=== PATIENT | female | born 1940 | race Caucasian/White ===

== ENCOUNTER 2017-08-01 08:05 | Day surgery (SDC) | payer MEDICARE ==
[~2017-08-01 08:05] MED LIST: BUPIVACAINE HCL 0.75% INJ/PF (7.5 MG/1 ML) 10 ML SDV OD PRN; KETOROLAC TROMETHAMINE 0.45% 4 DROP/0.4 ML DROPERETTE OD PRN; LIDOCAINE 4% INJ/PF (40 MG/ML) 5 ML AMPUL OD PRN
[2017-08-01] MEDS ORDERED: EPINEPHRINE INJ/PF 1 MG/1 ML AMPULE ONE (08:22)
[2017-08-01] MEDS ORDERED: CHONDR SU A NA/HYALUR INTRAOC KIT (SURGICARE) ONE (08:23)
[2017-08-01] MEDS ORDERED: LIDOCAINE 1% INJ-PF (10 MG/ML) 30 ML SDV ONE (08:23)
[2017-08-01] MEDS: CYCLOPENTOLATE 0.2%/PHENYLEPHRINE 1% OPH SOLN 2 ML OD PRN ×3 (08:42→09:02)
[2017-08-01] MEDS: TROPICAMIDE 1% OPH SOLN 3 ML OD PRN ×3 (08:42→09:02)
[2017-08-01] MEDS: BESIFLOXACIN HCL 0.6% OPH SUSP 5 ML BOTTLE OD PRN ×4 (08:42→09:40)
[2017-08-01] MEDS: TETRACAINE HCL 0.5% OPH SOLN 0.6 ML DROPERETTE OD PRN ×2 (08:43→09:02)
[2017-08-01] MEDS ORDERED: FENTANYL CITRATE INJ/PF 100 MCG/2 ML AMPUL ONE (09:02)
[2017-08-01] MEDS ORDERED: MIDAZOLAM 2 MG/2 ML INJ ONE ×2 (09:02→09:18)
[2017-08-01] MEDS ORDERED: NALOXONE HCL INJ/PF 0.4 MG/1 ML SDV ONE (09:51)
--- NOTE | 2017-08-01 10:53 | [facility] OPERATIVE REPORT E ---
[facility] Operative Report NAME: KEYON VALENTINO AGE: 77Y DATE OF SURGERY: 08/01/2017 ROOM: PREOPERATIVE DIAGNOSIS: Cataract, right eye. POSTOPERATIVE DIAGNOSIS: Cataract, right eye. PROCEDURE PERFORMED: Phacoemulsification with posterior chamber intraocular lens, right eye. SURGEON: FLAQUITA WHITE M.D. ANESTHESIA: Topical with MAC plus interocular lidocaine. INDICATIONS FOR SURGERY: Difficulty reading small print and watching IV. BEST CORRECTED VISUAL ACUITY: 20/70. DESCRIPTION OF PROCEDURE: The patient was brought to the operating room and placed on the operative table. Following tetracaine drops, topical anesthesia was administered. This consisted of instrument wipe pledgets soaked in a solution of 4% Xylocaine mixed with 0.75% Marcaine in a 1:2 ratio. A 2 x 1 cm pledget was placed in the superior fornix. A 1 x 1 cm pledget was placed in the inferior fornix. The eye was patched shut for 5 minutes. The patch was removed. The eye was sterilely prepped and draped in the usual manner. Lid speculum was placed in the eye. The pledgets were removed, 4-0 black silk sutures were placed around the superior and the inferior rectus muscles to be used as traction. A conjunctival peritomy was made at the 10 o'clock position. Hemostasis was obtained with bipolar cautery. A posterior limbal groove was created using a crescent knife and dissected anteriorly towards the cornea. A sharp point blade was used to create a paracentesis site at the 2 o'clock position. A 2.4 mm keratome was used to enter the anterior chamber through the groove. Viscoelastic was injected into the anterior chamber. An anterior capsulotomy was performed using Utrata forceps in a capsulorrhexis fashion. Hydrodissection and hydrodelineation were performed. Phacoemulsification was performed in swvptf-fmg-uolduda technique. A total of 1 minutes 48 seconds of total phaco time was used. Following this, the I/A unit was used to remove residual cortex. Viscoelastic was injected into the capsular bag. Intraocular lens Model SN60WF, 23.0 diopters, serial number [id number] was placed in the capsular bag. The I/A unit was used to remove residual viscoelastic. The wound was seen to be watertight under high and low pressure, and no sutures were placed. The intraocular lens was well centered. The pressure was adjusted in the eye to normal pressure. The 4-0 black silk sutures and lid speculum were removed. The eye was shielded after Besivance drops were placed. The patient tolerated the procedure well and was sent to the recovery room in good condition. DICTATING PHYSICIAN: FLAQUITA WHITE M.D. [id number] PHY#: [id number] ID: [id number] JOB#: [id number] ACCT: [id number] cc:FLAQUITA WHITE M.D. >
--- NOTE | 2017-08-01 11:38 | [facility] OPERATIVE REPORT E ---
[facility] Operative Report NAME: KEYON VALENTINO AGE: 77Y DATE OF SURGERY: 08/01/2017 ROOM: [facility] Operative Report PREOPERATIVE DIAGNOSIS: CATARACT, RIGHT EYE. POSTOPERATIVE DIAGNOSIS: CATARACT, RIGHT EYE. PROCEDURE PERFORMED: PHACOEMULSIFICATION WITH POSTERIOR CHAMBER INTRAOCULAR LENS, RIGHT EYE. SURGEON: FLAQUITA WHITE MD ANESTHESIA: TOPICAL WITH MAC PLUS INTRAOCULAR LIDOCAINE. INDICATIONS FOR SURGERY: Difficulty reading small print and watching TV. Best corrected visual acuity 20/70. PROCEDURE: The patient was brought to the Operating Room and placed on the operative table. Following tetracaine drops, topical anesthesia was administered. This consisted of instrument wipe pledgets soaked in a solution of 4% Xylocaine mixed with 0.75% Marcaine in a 1:2 ratio. A 2 x 1 cm pledget was placed in the superior fornix. A 1 x 1 cm pledget was placed in the inferior fornix. The eye was patched shut for 5 minutes. The patch was removed. The eye was sterilely prepped and draped in the usual manner. Lid speculum was placed in the eye. The pledgets were removed. 4-0 black silk sutures were placed around the superior and the inferior rectus muscles to be used as traction. A conjunctival peritomy was made at the 10 o'clock position. Hemostasis was obtained with bipolar cautery. A posterior limbal groove was created using a crescent knife and dissected anteriorly towards the cornea. A sharp point blade was used to create a paracentesis site at the 2 o'clock position. A 2.4 mm keratome was used to enter the anterior chamber through the groove. Viscoelastic was injected into the anterior chamber. An anterior capsulotomy was performed using Utrata forceps in a capsulorrhexis fashion. Hydrodissection and hydrodelineation were performed. Phacoemulsification was performed in zjhlpt-pep-swlqhnm technique. A total of 1 minute 48 seconds phaco time was used. Following this, the I/A unit was used to remove residual cortex. Viscoelastic was injected into the capsular bag. Intraocular lens model SN60WF, 23.0 diopters, serial number [id number] was placed in the capsular bag. The I/A unit was used to remove residual viscoelastic. The wound was seen to be watertight under high and low pressure, and no sutures were placed. The intraocular lens was well centered. The pressure was adjusted in the eye to normal pressure. The 4-0 black silk sutures and lid speculum were removed. The eye was shielded after Besivance drops were placed. The patient tolerated the procedure well and was sent to the Recovery Room in good condition. DICTATING PHYSICIAN: FLAQUITA WHITE M.D. DICTATING PHYSICIAN: FLAQUITA WHITE M.D. [id number] PHY#: [id number] ID: [id number] JOB#: [id number] ACCT: [id number] cc:FLAQUITA WHITE M.D. >
--- NOTE | 2017-08-01 11:43 | [facility] DISCHARGE SUMMARY E ---
[facility] Discharge Summary NAME: KEYON VALENTINO AGE: 77Y ADMITTED: 08/01/2017 DISCHARGED: 08/01/2017 HOSPITAL COURSE: The patient is a 77-year-old lady who underwent uneventful cataract extraction with intraocular lens implant right eye on 08/01/2017. She will be discharged to home. DISCHARGE INSTRUCTIONS: She is instructed to resume preoperative medications, take Tylenol as needed for discomfort, to keep her eye shielded, to use Besivance, Durezol and Ilevro at 3:00 p.m. and 8:00 p.m., and to follow up in my office in 1 day. DICTATING PHYSICIAN: FLAQUITA WHITE M.D. [id number] PHY#: [id number] ID: [id number] JOB#: [id number] ACCT: [id number] cc:FLAQUITA WHITE M.D. >
--- NOTE | 2017-08-01 11:53 | [facility] DISCHARGE SUMMARY E ---
[facility] Discharge Summary NAME: KEYON VALENTINO AGE: 77Y ADMITTED: 08/01/2017 DISCHARGED: 08/01/2017 HOSPITAL COURSE: The patient is a 77-year-old lady who underwent uneventful cataract extraction with intraocular lens implant, right eye on 08/01/2017. She will be discharged to home. She was instructed to resume preoperative medications, to take Tylenol as needed for discomfort, to keep her eye shielded, to use Besivance, Durezol, and Ilevro at 3:00 p.m. and 8:00 p.m., to and follow up in my office in 1 day. DICTATING PHYSICIAN: FLAQUITA WHITE M.D. [id number] PHY#: [id number] ID: [id number] JOB#: [id number] ACCT: [id number] cc:FLAQUITA WHITE M.D. >
== END 2017-08-01 10:45 | disposition home or self-care (01) ==
LOC: SC 08:05
PROVIDERS: ATTEND Ophthalmology
PROC: 08RJ3JZ Replacement of Right Lens with Synthetic Substitute, Percutaneous Approach (ICD-10-PCS; principal; 2017-08-01 09:30)
DX: H25.813 Combined forms of age-related cataract, bilateral (principal); H02.831 Dermatochalasis of right upper eyelid; H02.834 Dermatochalasis of left upper eyelid; H40.033 Anatomical narrow angle, bilateral; H40.053 Ocular hypertension, bilateral; E11.9 Type 2 diabetes mellitus without complications; I10 Essential (primary) hypertension; E78.00 Pure hypercholesterolemia, unspecified; Z87.891 Personal history of nicotine dependence; Z88.8 Allergy status to other drugs, medicaments and biological substances; Z79.899 Other long term (current) drug therapy; Z79.82 Long term (current) use of aspirin; I69.854 Hemiplegia and hemiparesis following other cerebrovascular disease affecting left non-dominant side; I69.820 Aphasia following other cerebrovascular disease
CPT/HCPCS: 66984; 82962; V2632; J2250; J3490 ×4; A9270; J0171; J3010; J2310; 142

== ENCOUNTER 2017-08-22 06:23 | Day surgery (SDC) | payer MEDICARE ==
[~2017-08-22 06:23] MED LIST changes: -BUPIVACAINE HCL 0.75% INJ/PF (7.5 MG/1 ML) 10 ML SDV OD PRN; +BUPIVACAINE HCL 0.75% INJ/PF (7.5 MG/1 ML) 10 ML SDV OS PRN; -KETOROLAC TROMETHAMINE 0.45% 4 DROP/0.4 ML DROPERETTE OD PRN; +KETOROLAC TROMETHAMINE 0.45% 4 DROP/0.4 ML DROPERETTE OS PRN; -LIDOCAINE 4% INJ/PF (40 MG/ML) 5 ML AMPUL OD PRN; +LIDOCAINE 4% INJ/PF (40 MG/ML) 5 ML AMPUL OS PRN
[2017-08-22] MEDS: TETRACAINE HCL 0.5% OPH SOLN 0.6 ML DROPERETTE OS PRN ×2 (06:56→07:32)
[2017-08-22] MEDS: BESIFLOXACIN HCL 0.6% OPH SUSP 5 ML BOTTLE OS PRN ×4 (06:57→08:29)
[2017-08-22] MEDS: TROPICAMIDE 1% OPH SOLN 3 ML OS PRN ×3 (06:57→07:30)
[2017-08-22] MEDS: CYCLOPENTOLATE 0.2%/PHENYLEPHRINE 1% OPH SOLN 2 ML OS PRN ×3 (06:57→07:30)
[2017-08-22] MEDS ORDERED: CHONDR SU A NA/HYALUR INTRAOC KIT (SURGICARE) ONE (07:34)
[2017-08-22] MEDS ORDERED: EPINEPHRINE INJ/PF 1 MG/1 ML AMPULE ONE (07:34)
[2017-08-22] MEDS ORDERED: LIDOCAINE 1% INJ-PF (10 MG/ML) 30 ML SDV ONE (07:38)
[2017-08-22] MEDS ORDERED: FENTANYL CITRATE INJ/PF 100 MCG/2 ML AMPUL ONE (07:43)
[2017-08-22] MEDS ORDERED: MIDAZOLAM 2 MG/2 ML INJ ONE (07:43)
--- NOTE | 2017-08-22 10:54 | [facility] OPERATIVE REPORT E ---
[facility] Operative Report NAME: KEYON VALENTINO AGE: 77Y DATE OF SURGERY: 08/22/2017 ROOM: [facility] Operative Report PREOPERATIVE DIAGNOSIS: CATARACT, LEFT EYE. POSTOPERATIVE DIAGNOSIS: CATARACT, LEFT EYE. PROCEDURE PERFORMED: PHACOEMULSIFICATION WITH POSTERIOR CHAMBER INTRAOCULAR LENS, LEFT EYE. SURGEON: FLAQUITA WHITE MD ANESTHESIA: TOPICAL WITH MAC. INDICATIONS FOR SURGERY: Difficulty reading small print and words on TV. Best corrected visual acuity 20/80. PROCEDURE: The patient was brought to the Operating Room and placed on the operative table. Following tetracaine drops, topical anesthesia was administered. This consisted of instrument wipe pledgets soaked in a solution of 4% Xylocaine mixed with 0.75% Marcaine in a 1:2 ratio. A 2 x 1 cm pledget was placed in the superior fornix. A 1 x 1 cm pledget was placed in the inferior fornix. The eye was patched shut for 5 minutes. The patch was removed. The eye was sterilely prepped and draped in the usual manner. Lid speculum was placed in the eye. The pledgets were removed. 4-0 black silk sutures were placed around the superior and the inferior rectus muscles to be used as traction. A conjunctival peritomy was made at the 10 o'clock position. Hemostasis was obtained with bipolar cautery. A posterior limbal groove was created using a crescent knife and dissected anteriorly towards the cornea. A sharp point blade was used to create a paracentesis site at the 2 o'clock position. A 2.4 mm keratome was used to enter the anterior chamber through the groove. Viscoelastic was injected into the anterior chamber. An anterior capsulotomy was performed using Utrata forceps in a capsulorrhexis fashion. Hydrodissection and hydrodelineation were performed. Phacoemulsification was performed in tpkmco-bgc-knuydma technique. A total of 12.3 CDE seconds phaco time was used. Following this, the I/A unit was used to remove residual cortex. Viscoelastic was injected into the capsular bag. Intraocular lens model SN60WF, 23.5 diopters, serial number [id number] was placed in the capsular bag. The I/A unit was used to remove residual viscoelastic. The wound was seen to be watertight under high and low pressure, and no sutures were placed. The intraocular lens was well centered. The pressure was adjusted in the eye to normal pressure. The 4-0 black silk sutures and lid speculum were removed. The eye was shielded after Besivance drops were placed. The patient tolerated the procedure well and was sent to the Recovery Room in good condition. DICTATING PHYSICIAN: FLAQUITA WHITE M.D. [id number] PHY#: [id number] ID: [id number] JOB#: [id number] ACCT: [id number] cc:FLAQUITA WHITE M.D. >
--- NOTE | 2017-08-22 15:59 | [facility] DISCHARGE SUMMARY E ---
[facility] Discharge Summary NAME: KEYON VALENTINO AGE: 77Y ADMITTED: 08/22/2017 DISCHARGED: HOSPITAL COURSE: The patient is a 77-year-old lady who underwent uneventful cataract extraction with intraocular lens implant, left eye, on 08/22/2017. She will be discharged to home. DISCHARGE INSTRUCTIONS: She is instructed to resume preoperative medications, take Tylenol as needed for discomfort, to keep her eye shielded. To use Besivance, Durezol and Ilevro at 3:00 p.m. and 8:00 p.m. To follow up in my office in 1 day. DICTATING PHYSICIAN: FLAQUITA WHITE M.D. [id number] PHY#: [id number] ID: [id number] JOB#: [id number] ACCT: [id number] cc:FLAQUITA WHITE M.D. >
== END 2017-08-22 09:17 | disposition home or self-care (01) ==
LOC: SC 06:23
PROVIDERS: ATTEND Ophthalmology
DX: H25.812 Combined forms of age-related cataract, left eye (principal); Z96.1 Presence of intraocular lens; H40.053 Ocular hypertension, bilateral; I10 Essential (primary) hypertension; E11.9 Type 2 diabetes mellitus without complications; R01.1 Cardiac murmur, unspecified; Z86.73 Personal history of transient ischemic attack (TIA), and cerebral infarction without residual deficits; Z79.84 Long term (current) use of oral hypoglycemic drugs; Z79.82 Long term (current) use of aspirin; I69.361 Other paralytic syndrome following cerebral infarction affecting right dominant side
CPT/HCPCS: 82962; V2632; J2250; J3490 ×4; A9270; J0171; J3010; 142

== ENCOUNTER 2018-02-16 07:44 | Day surgery (SDC) | payer MEDICARE ==
[2018-02-16] MEDS ORDERED: TETRACAINE HCL 0.5% OPH SOLN 4 ML ONE (08:32)
[2018-02-16] MEDS ORDERED: THROMBIN (BOVINE) TOPICAL 5000 UNIT VIAL ONE (08:32)
[2018-02-16] MEDS ORDERED: POVIDONE-IODINE 5% OPH PREP SOLN 30 ML ONE (08:32)
[2018-02-16] MEDS ORDERED: LIDOCAINE 2%/EPINEPHRINE INJ 20 ML VIAL ONE (08:32)
[2018-02-16] MEDS ORDERED: BUPIVACAINE HCL 0.75% INJ/PF (7.5 MG/1 ML) 10 ML SDV ONE (08:32)
[2018-02-16] MEDS ORDERED: BALANCED SALT IRRIG SOLN COMB2 15 ML BOTTLE ONE (08:33)
[2018-02-16] MEDS ORDERED: FENTANYL CITRATE INJ/PF 100 MCG/2 ML AMPUL ONE (08:37)
[2018-02-16] MEDS ORDERED: PROPOFOL INJ 200 MG/20 ML VIAL IV ONE (08:37)
[2018-02-16] MEDS ORDERED: MIDAZOLAM 2 MG/2 ML INJ ONE (08:37)
[2018-02-16] MEDS: NEO/POLYMYX B SULF/DEXAMETH OPH OINTMENT 3.5 GM ONE ×2 (09:41)
--- NOTE | 2018-02-16 12:10 | [facility] OPERATIVE REPORT E ---
[facility] Operative Report NAME: KEYON VALENTINO AGE: 77Y DATE OF SURGERY: 02/16/2018 ROOM: PREOPERATIVE DIAGNOSIS: Bilateral upper eyelid dermatochalasis with visual field loss. 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 PROCEDURE PERFORMED: Bilateral upper eyelid blepharoplasty. SURGEON: FLAQUITA WHITE M.D. ANESTHESIA: Local with MAC. INDICATIONS FOR SURGERY: Having to manually lift eyelids up to improve reading. PROCEDURE: The patient was brought to the operating room and tetracaine drops were placed in the eye. Both eyes were sterilely prepped and draped in the usual manner. Under monitored anesthesia care, the upper eyelid crease was marked using a marking pen and 0.3 mm forceps were used to estimate the excess upper eyelid skin to be excised. This was marked in elliptical fashion. Local anesthesia was administered. This consisted of 3 mL of 2% Xylocaine with epinephrine mixed with 0.75% Marcaine. This was administered equally in both upper lids and diffused with a Q-tip. Attention was directed to the left upper lid where the elliptical piece of skin was removed. Hemostasis was obtained with bipolar cautery. The orbital septum was opened and a small amount of fat was removed, grasped with a hemostat, cut, and cauterized. Thrombin was placed on the incision. An identical procedure was performed on the right upper lid. Wound closure was completed with 3 interrupted silk sutures, equally spaced through the lids, taking a deep bite of the fascia, and wound closure was completed with running 6-0 nylon suture of both upper lids. There was good hemostasis at the end of the surgery. The patient tolerated the procedure well. Maxitrol ointment was placed on both of her lids. The patient was sent to recovery room. DICTATING PHYSICIAN: FLAQUITA WHITE M.D. [id number] [id number] PHY#: [id number] ID: [id number] JOB#: [id number] ACCT: [id number] cc:FLAQUITA WHITE M.D. >
--- NOTE | 2018-02-16 12:15 | [facility] DISCHARGE SUMMARY E ---
[facility] Discharge Summary NAME: KEYON VALENTINO AGE: 77Y ADMITTED: 02/16/2018 DISCHARGED: 02/16/2018 HOSPITAL COURSE: The patient is a 77-year-old who underwent uneventful upper eyelid blepharoplasty on 02/16/2018. She will be discharged to home. She is instructed to resume preoperative medications, to take Tylenol as needed for discomfort, to keep her head of her bed elevated 45 degrees, to use a blepharoplasty ice pack 10 minutes out of every hour while awake, to use Maxitrol ointment twice a day, and to follow up in my office in 10 days. DICTATING PHYSICIAN: FLAQUITA WHITE M.D. [id number] [id number] PHY#: [id number] ID: [id number] JOB#: [id number] ACCT: [id number] cc:FLAQUITA WHITE M.D. >
== END 2018-02-16 10:28 | disposition home or self-care (01) ==
LOC: SC 07:44
PROVIDERS: ATTEND Ophthalmology
DX: H02.831 Dermatochalasis of right upper eyelid (principal); H02.834 Dermatochalasis of left upper eyelid; E11.9 Type 2 diabetes mellitus without complications; I10 Essential (primary) hypertension; E78.00 Pure hypercholesterolemia, unspecified; H53.453 Other localized visual field defect, bilateral; Z96.1 Presence of intraocular lens; R01.1 Cardiac murmur, unspecified; I49.9 Cardiac arrhythmia, unspecified; I69.820 Aphasia following other cerebrovascular disease; I69.851 Hemiplegia and hemiparesis following other cerebrovascular disease affecting right dominant side; Z87.891 Personal history of nicotine dependence; Z79.82 Long term (current) use of aspirin; Z79.899 Other long term (current) drug therapy; Z88.6 Allergy status to analgesic agent
CPT/HCPCS: 15823; 82962; J2250; J3490 ×7; J3010; J2704; 103